=== PATIENT | male | born 2000 | race Caucasian/White ===

== ENCOUNTER 2020-03-30 03:02 | Emergency (ER) | payer MEDICAID ==
[~2020-03-30] VITALS: Ht 177.8 cm; Wt 97.5 kg
[2020-03-30 03:04] VITALS: Ht 177.8 cm; Wt 97.5 kg
== END 2020-03-30 06:42 | disposition expired ==
LOC: ED 03:02
DX: I46.9 Cardiac arrest, cause unspecified (principal)